=== PATIENT | female | born 1945 | race Two or more races ===

== ENCOUNTER 2018-08-13 11:48 | Emergency (ER) | payer SELFPAY ==
[~2018-08-13] VITALS: Ht 157.5 cm; Wt 46.0 kg
[2018-08-13 11:53] VITALS: BP 150/78
[2018-08-13] MEDS ORDERED: ACETAMINOPHEN 325MG TABLET PO ONE ×2 (12:15→17:30)
== END 2018-08-13 17:14 | disposition home or self-care (01) ==
LOC: EDSEX 11:48 → ER 11:48
DX: S09.8XXA Other specified injuries of head, initial encounter (principal); S60.222A Contusion of left hand, initial encounter; S90.02XA Contusion of left ankle, initial encounter; M85.842 Other specified disorders of bone density and structure, left hand; W01.0XXA Fall on same level from slipping, tripping and stumbling without subsequent striking against object, initial encounter; Y93.89 Activity, other specified; Y92.9 Unspecified place or not applicable; Z59.0 Homelessness
CPT/HCPCS: 29125; 73110; 73130; 73200; 73610; 73630; 99284